=== PATIENT | female | born 1995 | race Two or more races ===

== ENCOUNTER 2023-01-12 10:10 | Emergency (ER) | payer SELFPAY ==
[2023-01-12 10:15] VITALS: BP 142/95; PULSE 97; O2SAT 99; BMI 29.3
[2023-01-12 10:22] VITALS: RESP 18
[2023-01-12] MEDS: ketorolac 60 mg/2 mL INJ IM (10:30)
[2023-01-12] MEDS: amoxicillin-clav 875-125 mg Tablet 1 TAB PO (10:30)
--- NOTE | 2023-01-12 11:13 | ED_ITS ---
HPI - Dental/Oral General: Chief complaint: Dental/Oral Stated complaint: tooth abcess Time Seen by Provider: 01/12/23 10:11 History of Present Illness: Patient is a 27-year-old female that presents to the emergency department with a dental abscess. Patient states that she woke up yesterday with dental pain in the left lower jaw. She noted some localized swelling that significantly worsened this morning upon waking. Patient is new to the area and has not established dental care services. Associated symptoms: Denies ear or mastoid pain, fever(s) or odynophagia Review of Systems General: Reports: 10 or more systems reviewed and unremarkable except in HPI and below Const: Denies: fever(s), chills, change in appetite, change in weight, fatigue or malaise Eyes: Denies: change in vision, eye discomfort, eye discharge or eye redness ENMT: Reports: mouth pain; Denies: throat pain, enlarged tonsils, odynophagia, hoarseness, ear or mastoid pain, ear discharge, change in hearing, tinnitus, nasal discharge, nasal congestion, post nasal drip or sinus pain Card: Denies: chest pain, palpitations, irregular heart rhythm, edema, dyspnea on exertion, orthopnea or leg pain with exertion Resp: Denies: dyspnea, productive cough, non-productive cough, wheezing, stridor or chest congestion GI: Denies: abdominal pain, nausea, vomiting, dysphagia, diarrhea, constipation, bloating, GI cramping or hematochezia : Denies: flank pain, difficulty voiding, dysuria, urinary frequency, urinary urgency, urinary hesitancy, oliguria or hematuria Musc: Denies: neck pain, back pain, extremity pain, joint pain, joint swelling, joint redness, joint warmth or muscle weakness Skin/Breast: Denies: rash, pruritus, erythema, photosensitivity or new lesions Neuro: Denies: headache(s), numbness in extremities, weakness in extremities, sensory changes, lack of coordination, difficulty walking, frequent falls, dizziness, confusion, Slurred speech present, difficulty communicating thoughts, seizure-like activity or involuntary movements Endo: Denies: polyuria, polydipsia or tired all the time Kris/Lymph: Denies: easy bruising or easy bleeding Physical Exam Const: COMMON NORMALS: no acute distress, patient oriented x3 and alert GENERAL APPEARANCE: cooperative ORIENTATION/CONSCIOUSNESS: Yes awake, Yes oriented to person, Yes oriented to place and Yes oriented to time HENMT: COMMON NORMALS: normocephalic and atraumatic HEAD & SCALP: normocephalic and atraumatic FACE & SINUS: normal facial exam MOUTH: Normal oral and palatal mucosa present TEETH & GINGIVA: Yes fair dentition TEETH & GINGIVA IMAGES: 1. Dental abscess without fluctuance. THROAT: posterior oropharynx normal Eye: COMMON NORMALS: Equal, round and reactive pupils present, EOMs intact bilaterally, conjunctivae normal and no scleral icterus GENERAL EYE: appearance normal, both eyes and all related structures ALIGNMENT: Yes alignment normal PERIORBITAL: periorbital findings normal CONJUNCTIVA: Yes conjunctivae normal PUPIL: Yes Equal, round and reactive pupils present Neck/C-Spine: COMMON NORMALS: full ROM GENERAL: Yes normal visual inspection Lymph: LYMPHATIC: no lymphadenopathy noted Chest: COMMONS NORMALS: normal inspection of the chest Breast/axilla inspection: Yes no chest deformity, asymmetry, normal contours, no nodules, masses, tenderness Resp: COMMON NORMALS: normal respiratory effort, No retractions, No use of accessory muscles and clear to auscultation bilaterally EFFORT & INSPECTION: Yes able to speak in complete sentences and Yes symmetric chest movement AUSCULTATION: clear to auscultation bilaterally Cardio: COMMON NORMALS: regular rate, regular rhythm and Peripheral pulses 2+ throughout RATE: regular rate RHYTHM: regular rhythm PERIPHERAL PULSES: Peripheral pulses 2+ throughout GI: COMMON NORMALS: Normal to inspection, nondistended, normoactive bowel sounds present, Soft to palpation, non-tender and No hepatosplenomegaly present INSPECTION: Yes normal to inspection AUSCULTATION: Yes normoactive bowel sounds PALPATION: Yes Soft to palpation and Yes No hepatosplenomegaly present RECTAL EXAM: deferred Extremity: COMMON NORMALS: normal to inspection GENERAL: Yes normal exam except as noted Neuro: COMMON NORMALS: patient oriented x3 SENSORIUM/ORIENTATION: Yes alert, Yes oriented to person, Yes oriented to place and Yes oriented to time CRANIAL NERVES: Yes CN normal except as noted Psych: COMMON NORMALS: mental status grossly normal, Normal thought process present, cooperative, activity/motor behavior normal, denies homicidal ideation and denies suicidal ideation THOUGHT PROCESS: Normal thought process present Skin: COMMON NORMALS: no rashes or lesions noted, no wounds and turgor normal GENERAL SKIN EXAM: no rashes or lesions noted and turgor normal Course Vital Signs: Vital signs: Vital Signs Pulse Rate 97 01/12/23 10:15 Respiratory Rate 18 01/12/23 10:22 Blood Pressure 142/95 01/12/23 10:15 Pulse Oximetry 99 01/12/23 10:15 Oxygen Delivery Me thod Room Air 01/12/23 10:15 MDM - Dental/Oral Medical Decision Making Patient was evaluated in the emergency department for a dental abscess. Patient is new to the area and has not established dental care services. We will be providing her a list of services available in the area. Differential diagnosis includes dental abscess, dental caries, dental fracture, Anne's angina or cellulitis. Patient has localized swelling noted to the left lower jaw but no erythema. It is tender to palpation on anterior surface of the mouth but not externally. It is indurated without fluctuance. Patient is being provided a list of services available and we are going to start her on antibiotics. Augmentin was initiated here. Because of an allergy to Keflex, we observed her for 30 minutes. No evidence of allergic reaction. Patient's prescription will be electronically sent to [facility] pharmacy. She is to establish dental care services. It is agreeable. All questions answered Discharge Plan Discharge Patient Disposition: Home Clinical Impression: Toothache, Dental abscess, Dental caries, Gingival abscess Condition: Stable Prescriptions: New amoxicillin-pot clavulanate 875-125 mg tablet 1 tab PO BID 7 Days Qty: 14 0RF ketorolac 10 mg tablet 10 mg PO Q8H 5 Days Qty: 15 0RF Discharge Orders: Discharge ED (Routine); Ordered 01/12/23 Ordered By: Lety Dupont Patient Instructions: Dental Abscess (ED), Pain Management Activity Restrictions/Additional Instructions: Take your antibiotics as prescribed Please take the Toradol, ketorolac as prescribed. This is a medication similar to ibuprofen or Aleve. Please do not take additional medications like this while taking the prescription. Follow-up with your dentist of choice. I have provided you with a list of resources. Coding Level of Care Code ED [employer] for [facility] Hooks
--- NOTE | 2023-01-16 15:32 | DCPLANNER ---
TCM called patient due to no primary care physician - no answer at this time.
== END 2023-01-12 11:26 | disposition home or self-care (01) ==
PROVIDERS: Emergency Provider Nurse Practitioner
DX: K04.7 Periapical abscess without sinus (principal); K02.9 Dental caries, unspecified; K05.20 Aggressive periodontitis, unspecified
CPT/HCPCS: 96372; 99284; J1885